=== PATIENT | male | born 1960 | race American Indian/Alaskan Native ===

== ENCOUNTER 2016-11-25 12:32 | Observation (INO) | payer OTHER ==
[2016-11-25] MEDS ORDERED: NACL 0.45% 1000 ML 1,000 ML IV SCH (13:00)
[2016-11-25 13:23] LABS: Basophils % (Auto) 0.5 % (0.0-1.8); Eosinophils % (Auto) 1.1 % (0.0-4.3); Hematocrit 44.3 % (35.5-45.6); Hemoglobin 14.2 gm/dl (11.8-15.2); Mean Corpuscular HGB Conc 32 % (32-34); Mean Corpuscular Volume 81 fl (84-94); Platelet Count 250 K/mm3 (140-440); Red Blood Count 5.49 M/mm3 (3.65-5.03); Red Cell Distribution Width 13.7 % (13.2-15.2); White Blood Count 6.2 K/mm3 (4.5-11.0)
[2016-11-25] MEDS ORDERED: NACL 0.9% 1 ML, VANCOMYCIN VIAL 1,000 MG IR ONE (13:30)
[2016-11-25 13:34] LABS: INR 0.99 (0.87-1.13)
[2016-11-25 13:35] LABS: Partial Thromboplastin Time 25.8 Sec. (24.2-36.6)
[2016-11-25 13:37] LABS: Anion Gap 17 mmol/L; Blood Urea Nitrogen 10 mg/dL (9-20); Calcium 9.2 mg/dL (8.4-10.2); Carbon Dioxide 27 mmol/L (22-30); Glucose 123 mg/dL (75-100); Potassium 4.2 mmol/L (3.6-5.0); Sodium 142 mmol/L (137-145)
[2016-11-25 13:39] LABS: Mean Corpuscular Hemoglobin 26 pg (28-32)
[2016-11-25] MEDS ORDERED: NACL 0.9% 500 ML IR ONE (14:46)
[2016-11-25] MEDS ORDERED: SUBLIMAZE ONE (14:47)
[2016-11-25] MEDS ORDERED: VERSED ONE (14:47)
[2016-11-25] MEDS ORDERED: MARCAINE 0.25% INFILTRATI ONE (14:47)
[2016-11-25] MEDS ORDERED: XYLOCAINE 2% INFILTRATI ONE (14:47)
[2016-11-25] MEDS ORDERED: ANCEF/STERILE WATER 2 GM/20 ML 2 GM/20 ML SYRINGE IV ONE (14:48)
[2016-11-25] MEDS ORDERED: NACL 0.9% 250ML 250 ML ONE (14:48)
--- NOTE | 2016-11-25 15:31 | History and Physical Report ---
History of Present Illness Date of examination: 11/25/16 History of present illness: 56 YO man with h/o Ischemic CMP and CAD s/p multiple AK/PCI (most recenlty anterior AK and LAD PCI on 10/27/11). He has occasional fatigue with moderate activity but not with activities of daily living. He has not had any episodes of synncope or pre-syncope. His EF has remained depressed for the last several years despite maximally tolerated medical therapy (he has only been able to tolerate small doses of beta blockers due to fatigue). Echocardiogram was repeated recently and his EF remains 20%. ECG today reveals NSR with prior anterior AK. Past History Past Medical History: CAD, heart failure, hypertension, hyperlipidemia Past Surgical History: PTCA Social history: denies: smoking Family history: CAD Medications and Allergies Allergies Allergy/AdvReac Type Severity Reaction Status Date / Time No Known Allergies Allergy Verified 02/14/16 07:24 Home Medications Medication Instructions Recorded Confirmed Last Taken Type Aspirin [Adult Low Dose Aspirin EC] 81 mg PO QDAY 02/12/16 11/25/16 11/24/16 History 81mg Clopidogrel Bisulfate [Plavix] 75 mg PO QDAY 02/12/16 11/25/16 11/24/16 History 75mg Esomeprazole Magnesium [NexIUM] 40 mg PO QDAY 02/12/16 11/25/16 11/19/16 History 40mg Insulin NPH/Regular [Novolin 70/30] 20 unit SUB-Q BID 02/12/16 11/25/16 07:00 History Lisinopril [Zestril TAB] 10 mg PO QDAY 02/12/16 11/25/16 11/25/16 07:00 History 10mg NIFEdipine XL [Procardia Xl] 60 mg PO QDAY 02/12/16 11/25/16 11/25/16 07:00 History 60mg Carvedilol [Carvedilol] 6.25 mg PO BID 11/25/16 11/25/16 11/25/16 07:00 History 6.25mg ISOSORBIDE MONOnitrate [Imdur ER] 60 mg PO QDAY PRN 11/25/16 11/25/16 11/24/16 History 60mg Ketorolac Tromethamine [Acular 1 drop INTRAOCULA QID 03/04/0611/25/16 11/24/16 History 0.5% Opth Soln] 1 drop Latanoprost [Latanoprost] 1 drop INTRAOCULA HS 11/25/16 11/25/16 11/24/16 History 1 drop Pravastatin Sodium [Pravastatin] 10 mg PO QHS 11/25/16 11/25/16 11/24/16 History 40mg Active Meds: Active Medications Sodium Chloride (Nacl 0.45% 1000 Ml) 1,000 mls @ 50 mls/hr IV DIRECT RANJIT Stop: 11/25/16 23:59 Review of Systems All systems: negative (per hpi) Physical Examination Vital Signs Temp Pulse Resp BP Pulse Ox 98.1 F 73 19 114/71 99 11/25/16 13:49 11/25/16 13:49 11/25/16 13:49 11/25/16 13:49 11/25/16 13:49 General appearance: no acute distress HEENT: Positive: PERRL, EOMI Neck: Positive: neck supple, trachea midline Cardiac: Positive: Reg Rate and Rhythm. Negative: Audible Murmur Lungs: Positive: clear to auscultation, Normal Breath Sounds Neuro: Positive: Grossly Intact Abdomen: Positive: Soft, Active Bowel Sounds Skin: Positive: Clear Extremities: Absent: edema Results 11/25/16 13:15 11/25/16 13:15 Coagulation 11/25/16 Range/Units 13:15 PT 13.0 (12.2-14.9) Sec. INR 0.99 (0.87-1.13) APTT 25.8 (24.2-36.6) Sec. CBC 11/25/16 Range/Units 13:15 WBC 6.2 (4.5-11.0) K/mm3 RBC 5.49 H (3.65-5.03) M/mm3 Hgb 14.2 (11.8-15.2) gm/dl Hct 44.3 (35.5-45.6) % Plt Count 250 (140-440) K/mm3 Lymph # 2.3 (1.2-5.4) K/mm3 Dubois # 0.9 H (0.0-0.8) K/mm3 Eos # 0.1 (0.0-0.4) K/mm3 Baso # 0.0 (0.0-0.1) K/mm3 Comprehensive Metabolic Panel 11/25/16 Range/Units 13:15 Sodium 142 (137-145) mmol/L Potassium 4.2 (3.6-5.0) mmol/L Chloride 102.0 (98-107) mmol/L Carbon Dioxide 27 (22-30) mmol/L BUN 10 (9-20) mg/dL Creatinine 0.8 (0.8-1.5) mg/dL Glucose 123 H (75-100) mg/dL Calcium 9.2 (8.4-10.2) mg/dL Assessment and Plan 1. Ischemic Cardiomyopathy, EF 20%, NYHA II 2. CAD s/p PCI 3. Htn Extensively discussed ICD implant for primary prevention - he wants to proceed.
[2016-11-25 16:00] VITALS: BP 120/96
--- NOTE | 2016-11-25 16:05 | Event Note ---
Date: 11/25/16 Pt had been scheduled for ICD implant. He was taken to procedure room and became very anxious while being prepped and draped. He told the staff that he has changed his mind and no longer wants to do the procedure. He had not had any sedation at the time. I discussed this with patient and he requested that we cancel procedure today and reschedule for another day with general anesthesia as he does not think he can tolerate the procedure without anesthesia. Therefore, procedure was cancelled and will be rescheduled with anesthesia at another time. Abilio Parra MD
--- NOTE | 2016-11-25 19:13 | Admit Criteria Form ---
Admission Criteria Documentation: CARDIOLOGY GRG Clinical Indications for Admission to Inpatient Care ( Place 'X' for any and all applicable criteria): Hospital admission is needed for appropriate care of the patient because of ANY ONE of the following (1): [ ] I. Hemodynamic instability as indicated by ALL of the following (1)(2)(3) (4)(5) [ ]a) Vital signs or other findings not as expected for chronic patient condition or baseline [ ]b) Instability indicated by ANY ONE of the following: [ ]i) Hypotension [ ]ii) Symptomatic Tachycardia unresponsive to treatment ( e.g., analgesia, fluids, sedation as indicated) [ ]iii) Inadequate perfusion indicated by ANY ONE of the following: [ ] 1) Lactic acidosis (> 2 mmol/L) [ ] 2) New abnormal capillary refill (> 3 seconds) [ ] 3) Reduced urine output [ ] 4) New altered mental status [ ]iv) Orthostatic vital sign changes unresponsive to treatment (e.g., fluids) [ ]v) IV inotropic or vasopressor medication required to maintain adequate blood pressure or perfusion [ ] II. Severe heart failure as indicated by ANY ONE of the following(17)(18) [ ]a) Respiratory distress [ ]b) Hypotension [ ]c) Anasarca (refractory to outpatient therapy) [ ]d) Cardiac arrhythmias of immediate concern [ ]e) Myocardial ischemia [ ] III. Cardiac arrhythmias or findings of immediate concern indicated by ANY ONE of the following (19)(20): [ ] a) Heart rhythms that are inherently dangerous or unstable indicated by ANY ONE of the following (21)(22)(23): [ ] i) Resuscitated ventricular fibrillation or cardiac arrest [ ] ii) Ventricular escape rhythm [ ] iii) Sustained ventricular tachycardia (30 seconds or more of ventricular rhythm at greater than 100 beats per minute) [ ] iv) Nonsustained ventricular tachycardia and ANY ONE of the following: [ ] 1) Suspected cardiac ischemia as cause or consequence of ventricular tachycardia [ ] 2) In setting of acute myocarditis [ ] b) Unstable cardiac conduction defects indicated by ANY ONE of the following(23)(24)(25) [ ] i) Type II second-degree atrioventricular block [ ]ii) Third-degree atrioventricular block [ ]iii) New-onset left bundle branch block with suspected myocardial ischemia [ ]c) Any heart rhythm and ANY ONE of the following (21)(22)(26)(27) (28) [ ] i) Continuous long-term ECG monitoring needed (e.g., initiation of drug requiring monitoring for more than 24 hours) [ ] ii) Patient has automatic implanted cardioverter defibrillator that is repeatedly firing, malfunctioning, or in need of immediate adjustment of settings beyond the scope of ambulatory or observation care [ ]d) Heart rhythms of concern due to ANY ONE of the following: [ ] i) Hypotension [ ] ii) Respiratory distress [ ] iii) Association with other significant symptoms (e.g., bradycardia with syncope or ongoing dizziness, supraventricular tachycardia with chest pain (14)(15)(17) [ ] IV. Monitoring for cardiac contusion beyond the scope of observation care needed [A](30)(31)(32) [ ] V. Surgical or device complication (e.g., valve replacement complication , pacemaker dysfunction) (35)(41)(44)(45)(46) [ ] . Inpatient palliative care needed. [B](49) Also use Inpatient Palliative Care Criteria [ ] VII. Nonbacterial thrombotic (marantic) endocarditis (36)(43)(47)(48) [X ] VIII. Cardiology condition, symptom, or finding for which emergency and observation care has failed or are not considered appropriate. [ ] IX. Acute valvular disease requiring inpatient as indicated by ANY ONE of the following (41) [ ]a) Acute valvular regurgitation (42) [ ]b) Noninfectious valvulitis (43) [ ]c) Obstructive valve thrombosis [ ]d) Paravalvular leak [ ]e) Other significant valvular disorder remaining after emergency or observation level of care (as appropriate) [ ]X. Pericardial disease requiring inpatient treatment as indicated by ANY ONE of the following (33)(34)(35)(36)(37) [ ]a) Suspected tamponade (38)(39)(40) [ ]b) Hemopericardium [ ]c) Other significant pericardial disorder remaining after emergency or observation level of care (as appropriate) [ ] XI. Cardiac ischemia beyond scope of emergency and observation care. [ ] XII. Hypertension requiring inpatient treatment as indicated by ANY ONE of the following (6)(7)(8) [ ]a) SBP greater than 220 mm Hg or DBP greater than 120 mmHg despite treatment [ ]b) SBP greater than 140 mm Hg or DBP greater than 100 mm Hg with evidence of acute end organ damage as indicated by ANY ONE of the following [ ] i) Altered mental status [ ] ii) Acute renal failure as indicated by new onset of ANY ONE of the following (9)(10)(11)(12)(13) [ ]1) 3-fold rise in serum creatinine from baseline [ ]2) Serum creatinine greater than 4 mg/dL ( 354 micromoles/L) with acute rise greater than 0.5 mg/dL (44.2 micromoles/L) [ ]3) Reduction of more than 75% in estimated glomerular filtration rate from baseline [ ]4) Estimated glomerular filtration rate less than 35 mL/min/1.73m2 (0.59 mL/sec/1.73m2) in child up to 18 years of age [ ]5) Cessation of urine output indicated by ALL of the following [ ]A. Adequate volume status [ ]B. Inadequate urine output as indicated by ANY ONE of the following [ ]a. Urine output less than 0.3 mL/kg/hr for 24 hours [ ]b. Anuria (urine output less than 0.1 mL/kg/hr) for 12 hours [ ] iii) Aortic dissection [ ] iv) Myocardial Ischemia [ ] v) Left ventricular heart failure [ ]vi) Retinal Hemorrhage [ ]vii) Other significant finding [ ]c) Hypertension in child requiring inpatient treatment as indicated by ALL of the following(14)(15)(16) [ ] i) Outpatient treatment not effective, not available, or not appropriate [ ]ii) SBP or DBP greater than 95th percentile for age [ ]iii) Evidence of acute end organ damage as indicated by ANY ONE of the following [ ]1) Altered mental status [ ]2) Acute renal failure as indicated by new onset of ANY ONE of the following(9)(10)(11)(12)(13) [ ]A. 3-fold rise in serum creatinine from baseline [ ]B. Serum creatinine greater than 4 mg/dL (354 micromoles/L) with acute rise greater than 0.5 mg/dL (44.2 micromoles/L) [ ]C. Reduction of more than 75% in estimated glomerular filtration rate from baseline [ ]D. Estimated glomerular filtration rate less than 35 mL/min/1.73m2 (0.59 mL/sec/1.73m2) in child up to 18 years of age [ ]E. Cessation of urine output indicated by ALL of the following [ ]a. Adequate volume status [ ]b. Inadequate urine output as indicated by ANY ONE of the following [ ]i) Urine output less than 0.3 mL/kg/hr for 24 hours [ ]ii) Anuria ( urine output less than 0.1 mL/kg/hr) for 12 hours [ ]3) Severe headache [ ]4) Visual disturbance [ ]5) Retinal hemorrhage [ ]6) Other significant finding [ ]XIII. Complications of transplanted heart indicated by ANY ONE of the following(61): [ ]a) Acute graft rejection requiring inpatient management (eg, intravenous immunosuppression)(62)(63) [ ]b) Acute graft heart failure indicated by ANY ONE of the following(64): [ ]i) Hemodynamic instability [ ]ii) Cardiac arrhythmias of immediate concern [ ]iii) Pulmonary edema that is very severe (eg, mechanical ventilation needed, imminent or likely, need for 100% oxygen to keep oxygen saturation above 90%) [ ]iv) Pulmonary edema that is persistent as indicated by ALL of the following: [ ]1) New need for oxygen therapy to keep oxygen saturation above 90% (or increased FiO2 need from baseline) [ ]2) Has not improved sufficiently with emergency department or observation care IV diuretics or other heart failure treatments[E] [ ]v) Altered mental status that is severe or persistent [ ]vi) Increased creatinine (new on laboratory test) with reduction of more than 50% in estimated glomerular filtration rate from baseline [ ]vii) Progressively (ongoing) rising creatinine (known from past laboratory test) with reduction of more than 25% in estimated glomerular filtration rate from baseline [ ]viii) Acute renal failure [ ]ix) Acute peripheral ischemia (eg, examination shows pulseless, cool, mottled, or cyanotic extremity) [ ]x) Pulmonary artery catheter monitoring needed [ ]xi) Other sign or symptom of heart failure requiring inpatient treatment (ie, too severe or not responsive to outpatient and observation care treatment) [ ]c) Infection requiring inpatient management (eg, Hemodynamic instability, need for intravenous antimicrobial treatment)(66)(67)(68)(69)(70) [ ]d) Cardiac allograft vasculopathy requiring inpatient management ( eg evidence of cardiac ischemia)(71) [ ]e) Other complication of transplanted heart (eg, stroke, severe pulmonary hypertension, severe valvular dysfunction) requiring inpatient management(72) The original [facility] [employer] content created by [facility] has been revised. The portions of the content which have been revised are identified through the use of italic text or in bold, and [facility] has neither reviewed nor approved the modified material. All other unmodified content is copyright [facility] [employer]. Please see references footnoted in the original [facility] [employer] edition 2016 Admission Criteria Met: Yes
== END 2016-11-25 16:30 | disposition home or self-care (01) ==
LOC: OPU 12:32 → 4A 15:33
PROVIDERS: ADMIT Internal Medicine Cardiovascular Disease; ATTEND Internal Medicine Cardiovascular Disease
DX: I25.5 Ischemic cardiomyopathy (principal); I25.10 Atherosclerotic heart disease of native coronary artery without angina pectoris; I10 Essential (primary) hypertension; E78.5 Hyperlipidemia, unspecified; Z82.49 Family history of ischemic heart disease and other diseases of the circulatory system
CPT/HCPCS: 36415; 80048; 85025; 85610; 85730; 93005; 93010; C1892; G0378; J0690; J2250; J3010; J3370; J7050

== ENCOUNTER 2016-12-02 11:41 | Observation (INO) | payer OTHER ==
[~2016-12-02 11:41] MED LIST: ATROPINE ONE; ROBINUL ONE; ePHEDrine SULFATE ONE
[2016-12-02] MEDS ORDERED: NACL 0.9% 1 ML, VANCOMYCIN VIAL 1,000 MG IR ONE (11:57)
[2016-12-02] MEDS ORDERED: ANCEF/STERILE WATER 2 GM/20 ML 2 GM/20 ML SYRINGE IV ONE (12:25)
--- NOTE | 2016-12-02 12:38 | Anesthesia Day of Surgery ---
Anesthesia Day of Surgery - Day of Surgery Patient Examined: Yes Patient H&P Reviewed: Yes Patient is NPO: Yes
--- NOTE | 2016-12-02 12:42 | Anesthesia Consultation ---
Anesthesia Consult and Med Hx Date of service: 12/02/16 - Airway Anesthetic Teeth Evaluation: Good ROM Head & Neck: Adequate Mental/Hyoid Distance: Adequate Mallampati Class: Class II Intubation Access Assessment: Good - Pulmonary Exam CTA: Yes - Cardiac Exam Cardiac Exam: RRR - Pre-Operative Health Status ASA Pre-Surgery Classification: ASA4 Proposed Anesthetic Plan: MAC - Pre-Anesthesia Comment Pre-Anesthesia Comments: Pt has dilated cardiomyopath, EF 20% (/16) - Pulmonary Hx Smoking: No Hx Sleep Apnea: No - Cardiovascular System Hx Hypertension: Yes Hx Heart Attack/AMI: Yes (2011) Hx Percutaneous Transluminal Coronary Angioplasty (PTCA): Yes (4x) - Central Nervous System Hx Seizures: No CVA: Yes (2010) Hx Psychiatric Problems: No - Endocrine Hx Renal Disease: No Hx Liver Disease: No Hx Insulin Dependent Diabetes: Yes - Hematic Hx Sickle Cell Disease: No - Other Systems Hx Alcohol Use: Yes (wine 1 glass per day) Hx Substance Use: Yes (MARIJUJAYME QUIT 18 MONTHS AGO) Hx Cancer: No Hx Obesity: Yes - Additional Comments Anesthesia Medical History Comments: NAC
[2016-12-02] MEDS ORDERED: DIPRIVAN 10 MG/ML IV ONE ×2 (12:44)
[2016-12-02] MEDS ORDERED: VERSED ONE (12:48)
[2016-12-02] MEDS ORDERED: SUBLIMAZE ONE (12:48)
[2016-12-02] MEDS ORDERED: D50W (25GM) IV ONE ×2 (12:49→13:00)
[2016-12-02] MEDS: NACL 0.45% 1000 ML 1,000 ML IV SCH ×2 (13:10→22:48)
[2016-12-02] MEDS: NACL 0.9% 500 ML IR ONE ×2 (13:57→14:00)
--- NOTE | 2016-12-02 13:57 | History and Physical Report ---
History of Present Illness Date of examination: 12/02/16 History of present illness: 56 YO man with h/o Ischemic CMP and CAD s/p multiple IL/PCI (most recenlty anterior IL and LAD PCI on 10/27/11). He has occasional fatigue with moderate activity but not with activities of daily living. He has not had any episodes of synncope or pre-syncope. His EF has remained depressed for the last several years despite maximally tolerated medical therapy (he has only been able to tolerate small doses of beta blockers due to fatigue). Echocardiogram was repeated recently and his EF remains 20%. ECG today reveals NSR with prior anterior IL. He was previously scheduled for ICD implant last week - Procedure was rescheduled to this week as he wanted to have it done with anesthesia. Past History Past Medical History: acute IL, CAD, hypertension Past Surgical History: PTCA Social history: denies: smoking Family history: CAD Medications and Allergies Allergies Allergy/AdvReac Type Severity Reaction Status Date / Time No Known Allergies Allergy Verified 02/14/16 07:24 Home Medications Medication Instructions Recorded Confirmed Last Taken Type Aspirin [Adult Low Dose Aspirin EC] 81 mg PO QDAY 02/12/16 11/25/16 11/24/16 History 81mg Clopidogrel Bisulfate [Plavix] 75 mg PO QDAY 02/12/16 11/25/16 11/24/16 History 75mg Esomeprazole Magnesium [NexIUM] 40 mg PO QDAY 02/12/16 11/25/16 11/19/16 History 40mg Insulin NPH/Regular [Novolin 70/30] 20 unit SUB-Q BID 02/12/16 11/25/16 07:00 History Lisinopril [Zestril TAB] 10 mg PO QDAY 02/12/16 11/25/16 11/25/16 07:00 History 10mg NIFEdipine XL [Procardia Xl] 60 mg PO QDAY 02/12/16 11/25/16 11/25/16 07:00 History 60mg Carvedilol [Carvedilol] 6.25 mg PO BID 11/25/16 11/25/16 11/25/16 07:00 History 6.25mg ISOSORBIDE MONOnitrate [Imdur ER] 60 mg PO QDAY PRN 11/25/16 11/25/16 11/24/16 History 60mg Ketorolac Tromethamine [Acular 1 drop INTRAOCULA QID 11/25/16 11/25/16 11/24/16 History 0.5% Opth Soln] 1 drop Latanoprost [Latanoprost] 1 drop INTRAOCULA HS 11/25/16 11/25/16 11/24/16 History 1 drop Pravastatin Sodium [Pravastatin] 10 mg PO QHS 11/25/16 11/25/16 11/24/16 History 40mg Active Meds: Active Medications Sodium Chloride (Nacl 0.45% 1000 Ml) 1,000 mls @ 50 mls/hr IV DIRECT RANJIT Last Admin: 12/02/16 13:10 Dose: 50 mls/hr Review of Systems All systems: negative (per hpi) Physical Examination Vital Signs Temp Pulse Resp BP Pulse Ox 98.4 F 89 18 155/86 99 12/02/16 11:58 12/02/16 11:58 12/02/16 11:58 12/02/16 11:58 12/02/16 11:58 General appearance: no acute distress HEENT: Positive: PERRL Neck: Positive: neck supple Cardiac: Positive: Reg Rate and Rhythm. Negative: Systolic Murmur Lungs: Positive: clear to auscultation. Negative: Rales Neuro: Positive: Grossly Intact Abdomen: Positive: Soft, Active Bowel Sounds Extremities: Absent: edema Assessment and Plan 1. Ischemic CMP s/p ICD. NYHA III 2. CAD s/p PCI 3. Htn Plan: Extensively discussed ICD implant - he wants to proceed.
[2016-12-02] MEDS: XYLOCAINE 2% INFILTRATI ONE ×2 (13:58→14:08)
[2016-12-02] MEDS: MARCAINE 0.5% INFILTRATI ONE ×2 (14:01→14:08)
[2016-12-02] MEDS ORDERED: VANCOMYCIN VIAL 1,000 MG in NACL 0.9% 1,000 ML IRRIGATION ONE (14:02)
--- NOTE | 2016-12-02 15:24 | Event Note ---
Date: 12/02/16 Pt underwent single chamber ICD implant and DFT testing without apparent complications - see procedure note. If stable, discharge home tomorrow with home medications and following prescriptions: 1. Keflex 500 tid x 3 days 2. Percocet 5/325 q 6 hours prn pain (10 tabs) Abilio Parra MD
[2016-12-02] MEDS ORDERED: IMDUR PO PRN (15:26)
[2016-12-02] MEDS ORDERED: AMIDATE IV ONE ×2 (15:34)
--- NOTE | 2016-12-02 16:11 | XRay Report ---
AP chest x-ray. Findings: The heart is mildly enlarged with left ventricular contour. The lungs are clear. The pulmonary vessels are normal. A pacemaker is noted. There is no pleural fluid. Impression: Cardiomegaly with no acute findings.
[2016-12-02] MEDS: ANCEF/NS 1 GM/50 ML 1 GM/50 ML BAG IV SCH (20:09)
[2016-12-02] MEDS: NORCO 5/325 PO PRN (20:09)
--- NOTE | 2016-12-02 20:47 | Admit Criteria Form ---
Admission Criteria Documentation: TELEMETRY CARE Telemetry Admission Guidelines (Place 'X' for any and all applicable criteria): Admission to telemetry [A] may be indicated for ANY ONE of the following(1)(2)(3 )(4)(5): [X ]I. Cardiac disease, including ANY ONE of the following (9)(10)(11)(12)( 13): [ ]a) Postacute ME [ ]b) Low-risk patients with ST-segment elevation ME who have undergone successful percutaneous coronary intervention [ ]c) Unstable angina [ ]d) Suspected ME (until it is ruled out) [ ]e) Post cardiac surgery (first 48 to 72 hours unless complications occur) [ ]f) Acute arrhythmias (including significant tachycardia or bradycardia) [B] [ ]g) Firing of an implantable cardioverter defibrillator [C] [ ]h) Suspected pacemaker or implantable cardioverter defibrillator malfunction (10) [ ]i) New administration or adjustment of an antiarrhythmic drug [D ] [ ]j) Child admitted for acute congestive heart failure [ ]j) Long QT syndrome [ ]k) Advanced heart block (eg, second-degree Mobitz type II, third- degree heart block) [ ]l) Acute myocarditis or pericarditis [X ]m) Short-term (ambulatory or inpatient) monitoring after a cardiac procedure as indicated by ANY ONE of the following [E]: [ ]i) Electrophysiologic studies [ ]ii) Percutaneous coronary intervention with stent placement [ ]iii) Pacemaker placement with cardiac conduction defect [X ]iv) Implantable cardiac defibrillator placement [ ]II. Drug overdose or poisoning with substance that causes arrhythmias or QT prolongation (eg, phenothiazines, sympathomimetic agents, cyclic antidepressants, digitalis, antiarrhythmic drugs)(15) [ ]III. Short-term (ambulatory or inpatient) monitoring after therapeutic or diagnostic procedure requiring conscious sedation or anesthesia (eg, endoscopy, elective cardioversion) [ ]IV. Acute cerebrovascular even[F](18) [ ]V. Massive blood transfusion (eg, at least 10 units of packed red blood cells in 24 hours) [ ]. Variceal bleeding after endoscopy, sclerotherapy, or IV vasopressin [ ]VII. Uncorrected electrolyte abnormalities associated with an increased risk of dangerous arrhythmia [G]; examples include [ ]a) Hyperkalemia with attributable ECG changes [ ]b) Potassium greater than 6.5 mmol/L (mEq/L) in a patient without history of chronic renal disease [ ]c) Prolonged QT attributed to hypokalemia, hypomagnesemia, or hypocalcemia [ ]VIII.Unexplained syncope or other neurologic event suspected of being due to arrhythmia due to a finding that increases risk; examples include(19)(20)(21): [ ]a) High-risk ECG findings (eg, bifascicular block, bradycardia, abnormal QT interval, ventricular pre- excitation) [ ]b) History of previous syncope due to arrhythmia [ ]c) Abnormal ventricular function (eg, reduced ejection fraction ) [ ]d) Exertional or supine syncope [ ]e) Concerning syncope characteristics (eg, sudden loss of consciousness without prodrome) [ ]f) Family history of sudden [ ]g) Use of arrhythmogenic medication [ ]h) Suspected cardiac ischemia [ ]i) Known channelopathy (eg, long QT syndrome, Brugada syndrome, or catecholaminergic paroxysmal ventricular tachycardia) [ ]j) Known structural heart disease (eg, hypertrophic cardiomyopathy , severe valvular disease) [ ]k) Palpitations preceding syncope The original [facility] content created by [employer] has been revised. The portions of the content which have been revised are identified through the use of italic text or in bold, and [email or web address] has neither reviewed nor approved the modified material. All other unmodified content is copyright [employer]. Please see references footnoted in the original [employer] edition 2016 Admission Criteria Met: Yes
[2016-12-02] MEDS ORDERED: ZOCOR PO SCH (22:00)
[2016-12-02] MEDS ORDERED: NON-FORMULARY (Pravastatin Sodium [Pravastatin] 10 MG) PO SCH (22:00)
[2016-12-02] MEDS: COREG PO SCH (22:45)
[2016-12-03] MEDS: NACL 0.45% 1000 ML 1,000 ML IV SCH (04:47)
[2016-12-03] MEDS: ANCEF/NS 1 GM/50 ML 1 GM/50 ML BAG IV SCH (04:47)
[2016-12-03] MEDS: NORCO 5/325 PO PRN (09:23)
[2016-12-03] MEDS: COREG PO SCH (09:24)
[2016-12-03 09:35] VITALS: BP 144/91
[2016-12-03] MEDS ORDERED: PROCARDIA XL PO SCH (10:00)
[2016-12-03] MEDS ORDERED: PROTONIX PO SCH (10:00)
[2016-12-03] MEDS ORDERED: HALFPRIN EC PO SCH (10:00)
[2016-12-03] MEDS ORDERED: ZESTRIL PO SCH (10:00)
[2016-12-03] MEDS ORDERED: PLAVIX PO SCH (10:00)
[2016-12-03] MEDS ORDERED: NON-FORMULARY (Esomeprazole Magnesium [Nexium] 40 MG) PO SCH (10:00)
--- NOTE | 2016-12-03 11:14 | Short Stay Summary ---
Short Stay Documentation Date of service: 12/03/16 - History Past Medical History: acute [place], CAD, hypertension Past Surgical History: PTCA Social history: no smoking - Allergies and Medications Current Medications: Allergies No Known Allergies Allergy (Verified 02/14/16 07:24) Home Medications Medication Instructions Recorded Confirmed Last Taken Type Aspirin [Adult Low Dose Aspirin EC] 81 mg PO QDAY 02/12/16 12/03/16 1 Day Ago History Clopidogrel Bisulfate [Plavix] 75 mg PO QDAY 02/12/16 12/03/16 1 Day Ago History Esomeprazole Magnesium [NexIUM] 40 mg PO QDAY 02/12/16 12/03/16 1 Day Ago History Insulin NPH/Regular [Novolin 70/30] 20 unit SUB-Q BID 02/12/16 12/03/16 1 Day Ago History Lisinopril [Zestril TAB] 10 mg PO QDAY 02/12/16 12/03/16 1 Day Ago History NIFEdipine XL [Procardia Xl] 60 mg PO QDAY 02/12/16 12/03/16 1 Day Ago History Carvedilol [Carvedilol] 6.25 mg PO BID 11/25/16 12/03/16 1 Day Ago History ISOSORBIDE MONOnitrate [Imdur ER] 60 mg PO QDAY PRN 11/25/16 12/03/16 1 Day Ago History Ketorolac Tromethamine [Acular 1 drop INTRAOCULA QID 11/25/16 12/03/16 1 Day Ago History 0.5% Opth Soln] Latanoprost [Latanoprost] 1 drop INTRAOCULA HS 11/25/16 12/03/16 1 Day Ago History Pravastatin Sodium [Pravastatin] 10 mg PO QHS 11/25/16 12/03/16 1 Day Ago History Active Medications Acetaminophen/Hydrocodone Bitart ([place] 5/325) 1 each PO Q6H PRN PRN Reason: Pain, Moderate (4-6) Last Admin: 12/03/16 09:23 Dose: 1 each Aspirin (Halfprin Ec) 81 mg PO QDAY [facility] Last Admin: 12/03/16 09:24 Dose: 81 mg Carvedilol (Coreg) 6.25 mg PO BID [facility] Last Admin: 12/03/16 09:24 Dose: 6.25 mg Clopidogrel Bisulfate (Plavix) 75 mg PO QDAY [facility] Last Admin: 12/03/16 09:24 Dose: 75 mg Sodium Chloride (Nacl 0.45% 1000 Ml) 1,000 mls @ 50 mls/hr IV DIRECT [facility] Last Admin: 12/03/16 04:47 Dose: 50 mls/hr Insulin Human Isoph/Insulin Regular (Novolin 70/30) 20 unit SUB-Q BIDDIAB [facility] Last Admin: 12/03/16 09:25 Dose: 20 unit Isosorbide Mononitrate (Imdur) 60 mg PO QDAY PRN PRN Reason: Chest Pain Lisinopril (Zestril) 10 mg PO QDAY [facility] Last Admin: 12/03/16 09:24 Dose: 10 mg Nifedipine (Procardia Xl) 60 mg PO QDAY [facility] Last Admin: 12/03/16 09:24 Dose: 60 mg Pantoprazole Sodium (Protonix) 40 mg PO DAILY [facility] Last Admin: 12/03/16 09:24 Dose: 40 mg Simvastatin (Zocor) 10 mg PO QHS [facility] Last Admin: 12/02/16 22:53 Dose: Not Given - Physical exam General appearance: no acute distress HEENT: PERRLA Lungs: Clear to auscultation Heart: Regular rate, Normal S1, Normal S2 - Brief post op/procedure progress note Procedure: Pt underwent single chamber ICD implant and DFT testing without apparent complications. Condition: stable - Hospital course Hospital course: Stable overnight observation. - Disposition Condition at discharge: Good Disposition: DISCHARGED TO HOME OR SELFCARE Short Stay Discharge Plan Activity: advance as tolerated Diet: low fat, low cholesterol, low salt Special Instructions: keep arm in sling for 72 hours Follow up with: IMELDA MCCRACKEN MD [Primary Care Provider] - 7 Days ROSELINE BETANCOURT MD [Staff Physician] - 7 Days Prescriptions: Cephalexin [Keflex] 500 mg PO Q8HR #9 cap HYDROcodone/APAP 5-325 [[place] 5-325 mg TAB] 1 each PO Q6H PRN #10 tablet PRN Reason: Pain, Moderate (4-6)
== END 2016-12-03 13:04 | disposition home or self-care (01) ==
LOC: OPU 11:41 → 4A 13:57
PROVIDERS: ADMIT Internal Medicine Cardiovascular Disease; ATTEND Internal Medicine Cardiovascular Disease
DX: I25.5 Ischemic cardiomyopathy (principal); I25.10 Atherosclerotic heart disease of native coronary artery without angina pectoris; I25.2 Old myocardial infarction; I10 Essential (primary) hypertension; E66.9 Obesity, unspecified; E11.9 Type 2 diabetes mellitus without complications; Z82.49 Family history of ischemic heart disease and other diseases of the circulatory system; Z98.61 Coronary angioplasty status; Z86.73 Personal history of transient ischemic attack (TIA), and cerebral infarction without residual deficits
CPT/HCPCS: 33249; 71010; 82962; 93005; 93010; 93641; 96365; 96372; 96375; C1722; C1769; C1892; C1895; G0378; J0461; J0690; J2250; J2704; J3010; J3370; J1815